=== PATIENT | male | born 1975 | race Caucasian/White ===

== ENCOUNTER → 2019-04-09 09:07 | Outpatient (CLI) | payer OTHER, SELFPAY ==
--- NOTE | 2019-04-09 09:21 | RAD_ITS ---
STUDY: X-RAY - PELVIS AND BILATERAL HIPS REASON FOR EXAM: Male, 43 years old. Low back pain and right hip pain TECHNIQUE: AP view of the pelvis.? 2 views of the right hip, and 2 views of the left hip were obtained. COMPARISON: None. FINDINGS: There is a non-specific bowel gas pattern. Normal visualized soft tissue structures. Normal bilateral iliac wings, sacroiliac joints and visualized sacrum. Normal bilateral superior and inferior pubic rami. Normal pubic symphysis. Normal bilateral ischial tuberosities. Normal visualized right femoral head. Normal right acetabulum. Normal right hip joint. Normal visualized left femoral head. Normal left acetabulum. Normal left hip joint. RAD/Hips B/L min 2 views w/ Pelvis IMPRESSION: Normal x-ray examination of the pelvis and bilateral hips. Electronically Signed: Pedro Christina DO at 9:09 EDT Tel , Service support ,
--- NOTE | 2019-04-09 09:21 | RAD_ITS ---
STUDY: X-RAY - LUMBAR SPINE REASON FOR EXAM: Male, 43 years old. Low back pain TECHNIQUE: 5 view(s) of the lumbar spine were obtained. COMPARISON: None FINDINGS: Normal lumbar lordosis. There is no substantial scoliosis. Grade 1/2 anterolisthesis of L5 on S1. Chronic pars defects. There is multilevel endplate spondylosis of the lumbar vertebrae. Severe disc space height loss at L5-S1. There is no demonstrated acute fracture. The soft tissue structures are unremarkable. RAD/L/S Spine Min 4 Views IMPRESSION: Prominent degenerative disc disease at L5-S1 with anterolisthesis. Electronically Signed: Pedro Christina DO at 9:09 EDT Tel , Service support ,
--- NOTE | 2019-04-09 09:25 | RAD_ITS ---
STUDY: X-RAY - SACROILIAC JOINTS REASON FOR EXAM: Male, 43 years old. Low back pain TECHNIQUE: 3 view(s) of the sacroiliac joints were obtained. COMPARISON: None. FINDINGS: Normal bilateral sacroiliac joints. Normal visualized sacral ala and sacrum. Normal visualized iliac bones. Normal visualized soft tissue structures. RAD/S-I Jts 3 or More Views IMPRESSION: Normal x-ray examination of the bilateral sacroiliac joints. Electronically Signed: Pedro Christina DO at 9:09 EDT Tel , Service support ,
--- NOTE | 2019-04-09 09:25 | RAD_ITS ---
STUDY: X-RAY EXAMINATION: SCOLIOSIS SERIES REASON FOR EXAM: Male, 43 years old. Low back pain TECHNIQUE: 3 view(s) of the thoracolumbar spine were obtained in the upright standing position. COMPARISON: None. FINDINGS: In the thoracolumbar spine region, there is slight rightward curvature measuring roughly 12 degrees. No evidence of vertebral body anomaly. RAD/Scoliosis 1 view IMPRESSION: Minimal rightward curvature of the thoracolumbar spine as above Electronically Signed: Pedro Christina DO at 9:11 EDT Tel , Service support ,
== END ==
PROVIDERS: Family Provider Family Medicine; PCP Family Medicine; Referring Provider Family Medicine; Visit Provider Family Medicine
DX: M54.5 Low back pain (principal); G89.29 Other chronic pain; M25.552 Pain in left hip; M25.551 Pain in right hip; M41.119 Juvenile idiopathic scoliosis, site unspecified
CPT/HCPCS: 72081; 72110; 72202; 73521

== ENCOUNTER 2019-07-16 07:00 | Outpatient (RCR) | payer OTHER, SELFPAY ==
--- NOTE | 2019-06-04 07:49 | HP.PTEVAL ---
Patient's Visit Information ZOILA SCHULZ II is a 43 year old M referred to Physical Therapy by Sridhar Reddy MD with a diagnosis of Lumbar IVDD, radiculopathy. Date of Evaluation: 06/04/19 Physical Therapist: Anatoly Boles, DPT, OCS, CSCS - Visit Plan Frequency: Every Other Week Duration: 2 Months Plan: Every other week(all patients schedule will allow) to ensure ext is appropriate, progress to remodelling adn strengthening activities to tolerance. Next session remodelling flexion if doing well. HS stretching - Subjective Findings: Chronic back pain and it is degenerative. Been there for years. Middle of LB. Describes spondylolisthesis. Stiff everyday and has to baby it. If it slips out he cannot breathe or walk. Sometimes legs go numb when back goes out. Has not gone out in a while. Back pain is currently OK. Just feels stiff. Has met deductible due to wifes surgery and wants to address it. 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 Lots of bending and twisting and has to push work off on others as he is berrios. Sleep is not great, turning in bed is rough. Been like that for years. Wakes up real stiff in the morning. Family is his hobby. Enjoys riding bike. Activities pretty normal but has to be careful with movment and lifting. - Pain LBP Pain Intensity (Out of 10): 0 Pain Intensity Range: 0, 10 - Objective Walks and trasnfers I today. Slow but no evidence of pain. reflexes 1/3 patella and achilles. Sensation LE WNL to gross light touch. Strength LE 4+/5 without back pain. HS and gastroc are mod tight B. LB AROM ext painful centrally and min limited today. SB min limited and not painful. forward flexion is hesitant but able with minor limitations. Repeated PPU seems to increase LB ROM in extension and NE on non existeent pain today. PDM but improves as he goes. - Goals Goal 1:: Patient have LB AROM WNL without hesitation or pain Goal Time Frame: 6-8 Weeks Goal 2:: patient feel 75% better in movement at work without discomfort Goal Time Frame: 6-8 Weeks Goal 3:: Sleep and rolla t night without noticing LB Goal Time Frame: 6-8 Weeks Goal 4:: Pt I in approp HEP to minimize future problems. Goal Time Frame: 6-8 Weeks - Rehabilitation Potential Physical Therapy Diagnosis: LBP due to discal pathology. Rehabilitation Potential: Fair - Anticipated Interventions Patient/Client Instruction: Educate patient on: Condition, Plan of Care For the Purpose of:: To decrease pain, To increase ROM, To increase tolerance to activity/condition/position, To improve ability of physical actions for home/community/work/leisure Therapeutic Exercise to Include: Strength training, Flexibilty training, Passive ROM, Active ROM, Dynamic Lumbar Stabilization For the Purpose of:: To decrease pain, To increase ROM, To increase tolerance to activity/condition/position, To improve ability of physical actions for home/community/work/leisure Thank you for the opportunity to evaluate your patient. For Medicare and Medicare HMO plans, please review the plan of care and approve it. It will need to be FAXED BACK to us at [phone] for Medicare purposes. For Medicare only, by signing this I certify the plan of care. Please let me know if there are questions or concerns regarding this plan of care. Physician Signature: Date:
--- NOTE | 2019-09-09 10:08 | HP.PT.NRP ---
HP - Discharge Summary (1) - Patient Information ZOILA SCHULZ II was seen in my office for initial evaluation on 06/04/19. The following Plan of Care was established for this patient: Initial Frequency: Every Other Week Initial Duration: 2 Months - Anticipated Interventions Patient/Client Instruction: Educate patient on: Condition, Plan of Care For the Purpose of:: To decrease pain, To increase ROM, To increase tolerance to activity/condition/position, To improve ability of physical actions for home/community/work/leisure Therapeutic Exercise to Include: Strength training, Flexibilty training, Passive ROM, Active ROM, Dynamic Lumbar Stabilization For the Purpose of:: To decrease pain, To increase ROM, To increase tolerance to activity/condition/position, To improve ability of physical actions for home/community/work/leisure This patient was last seen in our office 07/16/19. Pertinent comments regarding their Physical therapy will appear below: Pt seen 3 visits with 20% improvement. He neglected to schedule or attend any further visits. It has been nearly two months adn I will discontinue due to nonattendance. At this point I will be discontinuing this patient from physical therapy. I would be happy to see this patient again in the future if found appropriate by the physician. Thank you! Anatoly Boles, DPT, OCS, CSCS
== END 2019-07-16 19:00 | disposition home or self-care (01) ==
LOC: PT 07:00
PROVIDERS: Family Provider Family Medicine; PCP Family Medicine; Referring Provider Anesthesiology Pain Medicine; Visit Provider Anesthesiology Pain Medicine
DX: M51.37 Other intervertebral disc degeneration, lumbosacral region (principal); M54.17 Radiculopathy, lumbosacral region
CPT/HCPCS: 97110; 97162

== ENCOUNTER → 2019-09-24 12:28 | Outpatient (CLI) | payer OTHER, SELFPAY ==
[2019-09-24 13:58] LABS: Absolute Lymphocyte Count 2.23 X10^3/uL (0.83-4.51); Absolute Neutrophil Count 4.2 X10^3/uL (2.0-7.7); Basophil# 0.06 X10^3/uL; Basophil% 0.8 % (0-1); Eosinophil# 0.23 X10^3/uL; Eosinophils% 3.2 % (0-5); Hematocrit 43.5 % (40-54); Hemoglobin 14.9 g/dL (13.0-16.5); Lymphocyte # 2.23 X10^3/ul (4.0); Lymphocyte % 31.2 % (19-41); Mean Corp Hgb Conc 34.3 g/dL (32-36); Mean Corpuscular Hgb 32.5 pg (27.0-32.0); Mean Corpuscular Volume 94.8 fL (80-94); Mean Platelet Vol. 9.8 fl (6.2-12.0); Monocyte# 0.42 X10^3/uL; Monocyte% 5.9 % (0-10); NRBC Flagged by Analyzer 0 % (0-5); Neutrophil # 4.19 X10^3/uL (2.7-7.7); Neutrophil % 58.6 % (47-70); Platelet Count 308 K/mm3 (150-450); RBC Distribution Width CV 12.5 % (11.6-14.6); RBC Distribution Width SD 43.8 fl (35.1-43.9); Red Blood Count 4.59 M/mm3 (4.6-6.2); White Blood Count 7.2 K/mm3 (4.4-11.0)
== END ==
PROVIDERS: Family Provider Family Medicine; PCP Family Medicine; Referring Provider Family Medicine; Visit Provider Family Medicine
DX: K92.1 Melena (principal)
CPT/HCPCS: 36415; 85025

== ENCOUNTER → 2019-11-02 07:19 | Outpatient (CLI) | payer OTHER, SELFPAY ==
--- NOTE | 2019-11-02 07:22 | CT_ITS ---
STUDY: CT LUMBAR SPINE WITHOUT CONTRAST REASON FOR EXAM: Male, 44 years old. Injury years ago RADIATION DOSAGE (If Supplied By Facility): CTDIvol = ( 15.28 ) mGy, DLP = ( 593.20 ) mGycm TECHNIQUE: The patient was scanned in a multi detector CT scanner. High resolution transaxial imaging was performed. Images were obtained from T12 to coccyx. Sagittal and coronal images were reconstructed. Individualized dose optimization techniques were used for this CT. COMPARISON: None FINDINGS: Normal lumbar lordosis. There is no substantial scoliosis. There is a grade 1 anterolisthesis of L5 relative to S1 with bilateral L5 spondylolysis. There is sclerosis of the inferior aspect of the L5 body and superior aspect of the S1 body. L1-2: The facets are within normal limits. Disc spacing is preserved. There is mild posterior annular bulging. There is no central canal stenosis or foraminal narrowing. L2-3: There is mild disc space narrowing. There are mild bilateral degenerative facet changes. There is mild central canal stenosis and mild bilateral foraminal narrowing caused by posterior bulging annulus and the mild hypertrophic facet changes. L3-4: Disc spacing is preserved. The facets are within normal limits. There is mild posterior annular bulging. There is no central canal stenosis or foraminal narrowing. L4-5: Disc spacing is within normal limits. There are mild bilateral degenerative facet changes. There is mild central canal stenosis and bilateral foraminal narrowing caused by degenerative facet changes and posterior annular bulging. L5-S1: There is severe disc space narrowing. There is a grade 1 anterolisthesis of L5 relative to S1 with bilateral L5 spondylolysis. There is sclerosis of the inferior aspect of the L5 body and superior aspect of the S1 body. There is no evidence of central canal stenosis or foraminal narrowing. Normal visualized paraspinous soft tissue structures. CT/Spine Lumbar without Contrast IMPRESSION: Multilevel degenerative changes, as described above. Electronically Signed: Jake Pham MD at 21:14 EST , Service support ,
== END ==
PROVIDERS: Family Provider Family Medicine; PCP Family Medicine; Referring Provider Nurse Practitioner Family; Visit Provider Nurse Practitioner Family
DX: M46.96 Unspecified inflammatory spondylopathy, lumbar region (principal); M51.37 Other intervertebral disc degeneration, lumbosacral region; M54.17 Radiculopathy, lumbosacral region; M47.817 Spondylosis without myelopathy or radiculopathy, lumbosacral region; M43.16 Spondylolisthesis, lumbar region
CPT/HCPCS: 72131

== ENCOUNTER 2025-07-29 09:53 | Outpatient (CLI) | payer OTHER, SELFPAY ==
--- NOTE | 2025-07-29 10:05 | RAD_ITS ---
EXAM: XR Left Knee, 1 or 2 Views CLINICAL INDICATION: PAIN TECHNIQUE: Frontal and/or lateral views of the left knee. COMPARISON: No relevant prior studies available. FINDINGS: BONES/JOINTS: Unremarkable. No acute fracture. No dislocation. SOFT TISSUES: Unremarkable. RAD/Knee 1 or 2 Views IMPRESSION: No acute fracture. Reading [facility]
== END 2025-07-29 23:59 | disposition home or self-care (01) ==
LOC: RAD 09:59
DX: M25.562 Pain in left knee (principal)
CPT/HCPCS: 73560